=== PATIENT | male | born 1955 | race Hispanic/Latino ===

== ENCOUNTER 2018-10-15 21:05 | Observation (INO) | payer OTHER ==
[2018-10-15 21:34] LABS: BASO # 0.1 K/uL (0.0-0.2); EOS # 0.3 K/uL (0.0-0.7); EOS % 2.5 % (0.0-4.0); HEMOGLOBIN 12.4 g/dL (12.0-18.0); LYMPH # 3.2 K/uL (1.0-4.3); LYMPH % 31.1 % (20.0-40.0); MEAN CELL VOLUME 85.8 fl (80.0-94.0); MEAN CORPUSCULAR HEMOGLOBIN 28.8 pg (27.0-31.0); MEAN CORPUSCULAR HGB CONC 33.6 g/dL (33.0-37.0); MEAN PLATELET VOLUME 9.1 fl (7.2-11.7); MONO # 0.6 K/uL (0.0-0.8); MONO % 5.7 % (0.0-10.0); NEUT # 6.1 K/uL (1.8-7.0); NEUT % 59.7 % (50.0-75.0); NRBC % 0.1 % (0.0-0.0); RBC 4.32 Mil/uL (4.40-5.90); RED CELL DISTRIBUTION WIDTH 14.3 % (11.5-14.5); WHITE BLOOD COUNT 10.2 K/uL (4.8-10.8)
[2018-10-15 21:39] LABS: PROTHROMBIN TIME 11.9 Seconds (9.8-13.1)
[2018-10-15] MEDS: Sodium Chloride 0.9% 1,000 ML IV SCH (21:40)
[2018-10-15 21:42] LABS: PARTIAL THROMBOPLASTIN TIME 27.3 Seconds (25.6-37.1)
[2018-10-15 21:45] LABS: ALB/GLOB RATIO 1.3 (1.0-2.1); ALBUMIN 4.3 g/dL (3.5-5.0); ALT/SGPT 26 U/L (21-72); AST/SGOT 28 U/L (17-59); BLOOD UREA NITROGEN 12 mg/dl (9-20); CALCIUM 8.8 mg/dL (8.4-10.2); GFR NON-AFRICAN AMERICAN > 60; HDL CHOLESTEROL 31 MG/DL (30-70)
[2018-10-15 21:55] LABS: LDL CHOLESTEROL 126 mg/dL (0-129)
[2018-10-15] MEDS ORDERED: levETIRAcetam 1,000 MG in Sodium Chloride 0.9% 100 ML IVPB ONE (22:12)
--- NOTE | 2018-10-15 22:19 | ED PDOC ---
HPI: Seizure Time Seen by Provider: 10/15/18 21:09 Chief Complaint (Nursing): Weakness/Neurological Deficit Chief Complaint (Provider): seizure History Per: Patient, EMS, Other ([place] police department) History/Exam Limitations: no limitations Recent Seizure Activity Began: Just Before Arrival Number Of Seizures: One Length Of Seizures (Duration): Unknown Post-ictal Period: Yes Severity: Moderate Additional Complaint(s): 63 year old male with a past medical history of seizures and hypertension is brought into the ED by [place] police department for an evaluation of a seizure. [place] police was called when patient was crossing the street in [place], collapsed, and started seizing according to witnesses. Unable to recall how long the seizure lasted. Patient arrived to ED in post-ictal state. As per EMS, patient reported having a history of seizures and currently taking keppra. Lani ent reports being compliant with keppra and denies taking drugs or alcohol. PMD: Aditya Silverio MD Past Medical History Reviewed: Historical Data, Nursing Documentation, Vital Signs Vital Signs: Last Vital Signs Temp 98.9 F 10/15/18 21:06 Pulse 75 10/15/18 21:35 Resp 18 10/15/18 21:35 BP 111/64 10/15/18 21:35 Pulse Ox 97 10/15/18 21:35 VANDANA Report Viewed: Yes - Medical History PMH: Seizures - Family History Family History: States: No Known Family Hx - Social History Current smoker - smoking cessation education provided: No Alcohol: None - Home Medications Home Medications: Ambulatory Orders Medication Instructions Recorded Atorvastatin [Lipitor] 20 mg PO DAILY #30 tab 10/16/18 amLODIPine [Norvasc] 5 mg PO DAILY #30 tab 10/16/18 levETIRAcetam [Keppra] 500 mg PO BID #60 tab 10/16/18 - Allergies Allergies/Adverse Reactions: Allergies Allergy/AdvReac Type Severity Reaction Status Date / Time Unobtainable Allergy Verified 10/15/18 21:05 Review of Systems ROS Statement: Except As Marked, All Systems Reviewed And Found Negative Neurological: Positive for: Weakness, Seizures Physical Exam - Reviewed Nursing Documentation Reviewed: Yes Vital Signs Reviewed: Yes - Physical Exam Appears: Positive for: No Acute Distress Head Exam: Positive for: ATRAUMATIC, NORMOCEPHALIC Skin: Positive for: Warm, Dry Eye Exam: Positive for: EOMI, PERRL (PERRLA) ENT: Positive for: Other (superficial abrasion to tip of the tongue, (-) active bleeding, (-) laceration) Neck: Positive for: Painless ROM, Supple Cardiovascular/Chest: Positive for: Regular Rate, Rhythm. Negative for: Murmur Respiratory: Positive for: Normal Breath Sounds. Negative for: Respiratory Distress Gastrointestinal/Abdominal: Positive for: Soft. Negative for: Tenderness Back: Positive for: Normal Inspection. Negative for: Decreased ROM Extremity: Positive for: Normal ROM. Negative for: Deformity Lymphatic: Negative for: Adenopathy Neurological/Psych: Positive for: Awake, Alert, Oriented (3x), Lethargic (somewhat), Facial Droop (left sided), Other (right side gaze preferred). Negative for: Symmetric/Intact Strength (left arm and left leg weakness) - Laboratory Results Result Diagrams: 10/15/18 21:20 10/15/18 21:20 Lab Results: PT 11.9 Seconds (9.8-13.1) 10/15/18 21:20 INR 1.0 10/15/18 21:20 APTT 27.3 Seconds (25.6-37.1) 10/15/18 21:20 Troponin I < 0.0120 ng/mL (0.00-0.120) 10/15/18 21:20 Total Bilirubin 0.5 mg/dl (0.2-1.3) 10/15/18 21:20 AST 28 U/L (17-59) 10/15/18 21:20 ALT 26 U/L (21-72) 10/15/18 21:20 Alkaline Phosphatase 45 U/L (38-126) 10/15/18 21:20 Total Protein 7.5 G/DL (6.3-8.2) 10/15/18 21:20 Albumin 4.3 g/dL (3.5-5.0) 10/15/18 21:20 Globulin 3.3 gm/dL (2.2-3.9) 10/15/18 21:20 Albumin/Globulin Ratio 1.3 (1.0-2.1) 10/15/18 21:20 - ECG O2 Sat by Pulse Oximetry: 97 (RA) Pulse Ox Interpretation: Normal - Core Measure Core Measure Indicators: Code Stroke - Critical Care Total Time (In Min): 30 Documented Critical Care: Time excludes all time spent performint seperately billable procedures Medical Decision Making Medical Decision Makin:09 Initial impression: 63 year old male with a seizure and left sided weakness. Differential diagnoses include but are not limited to TIA and Abdi's paralysis. Code stroke called Initial plan: * CT head w/o contrast * XRay chest * EKG * type and screen * alcohol serum * CMP * hemoglobin * lipid panel * troponin * CBC with differential * PT/ PTT * keppra level * glucose, poc * IV NS 1,000 ml IV 100 mls/hr * reevaluation 21:34 CT head read and reviewed by radiologist Findings: The ventricles and sulci are symmetric bilaterally. There is no evidence of acute hemorrhage or infarct. There is no midline shift, mass effect, or extra-axial fluid collection. The osseous structures are unremarkable. The maxillary sinuses demonstrate mucus retention cyst bilaterally. The other visualized paranasal sinuses and mastoid air cells are clear. Impression: Negative study. 21:45 Upon reevaluation, patient has increased strength in upper and lower extremities. Decrease in left sided facial droop, smile improved. Improvement in right gaze preference. 22:10 Upon reevaluation, patient has no left sided neglect. EOMI in both eyes. Strength is 5/5 in all extremities. 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 Recommends observation and load patient with keppra 1,000 mg. Also advised to continue keppra 500 mg BID. 22:20 Discussed case with (hospitalist) for hospitalization. Scribe Attestation: Documented by Danika Reina, acting as a scribe for Valerie Chiu MD. Provider Scribe Attestation: All medical record entries made by the Scribe were at my direction and personally dictated by me. I have reviewed the chart and agree that the record accurately reflects my personal performance of the history, physical exam, m edical decision making, and the department course for this patient. I have also personally directed, reviewed, and agree with the discharge instructions and disposition. Disposition - Clinical Impression Clinical Impression: Breakthrough seizure, Weakness of one side of body - Disposition Disposition Time: 22:00 Condition: FAIR - Pt Status Changed To: Hospital Disposition Of: Observation - POA Present On Arrival: Falls Or Trauma
--- NOTE | 2018-10-15 23:04 | CP.PCM.HP ---
<Jeri Brown - Last Filed: 10/15/18 23:40> History of Present Illness - History of Present Illness History of Present Illness: This is 63 y/o M with PMH of Seizure disorder and HTN admitted to [facility] for evaluation and treatment of break through seizures followed by left body paralysis. As per patient he was normal to his baseline health and going back to home from work, while waiting for bus he had seizure/collapsed, and started seizing according to witnesses. Patient doesnt remember what happened after that and woke up in the ER. Unable to recall how long the seizure lasted. Patient arr ived to ED in post-ictal state. Patient reports his last seizure was > 1 year ago. Patient had temporarily left sided paralysis/neglect in the ER which improved after few mins. Patient is taking Keppra 250mg AM and 500mg PM with Amlodipine 5mg daily PMH: Dr. Karel Silverio PMH: Seizure disorder and HTN PSH: Denies Allg; NKDA Meds: Keppra 250mg AM and 500mg PM with Amlodipine 5mg daily SH: Denies alcohol/Smoking or drug use FH: Denies any FH of heart disease/Stroke or Seizures ER Course: VS: HR 93, 120/73, Spo2 97, Afebrile CBC: WNL CMP: WNL CT head: No acute findings Code Stroke was called COnsult Neuro (C/w keppra 500 BID, no ASA/STATIN or MRI) Present on Admission - Present on Admission Any Indicators Present on Admission: No Review of Systems - Constitutional Constitutional: absent: Headache - EENT Eyes: absent: Blurred Vision Ears: absent: Ear Discharge, Disequilibrium, Dizziness Nose/Mouth/Throat: absent: Nasal Congestion - Cardiovascular Cardiovascular: absent: Chest Pain - Respiratory Respiratory: absent: Cough, Dyspnea, Hemoptysis - Gastrointestinal Gastrointestinal: absent: Abdominal Pain, Diarrhea - Genitourinary Genitourinary: absent: Dysuria - Musculoskeletal Musculoskeletal: absent: Back Pain - Integumentary Integumentary: absent: Bleeding Lesions - Neurological Neurological: absent: Abnormal Gait, Abnormal Movements, Dizziness, Sensory Deficit, Tingling, Tremor, Vertigo, Weakness - Psychiatric Psychiatric: absent: Anxiety, Visual Hallucinations - Hematologic/Lymphatic Hematologic: absent: Easy Bleeding Past Patient History - Past Social History Alcohol: None - NEUROLOGICAL Hx Seizures: Yes - PSYCHIATRIC Hx Substance Use: No Meds Allergies/Adverse Reactions: Allergies Allergy/AdvReac Type Severity Reaction Status Date / Time Unobtainable Allergy Verified 10/15/18 21:05 Physical Exam - Constitutional Appears: No Acute Distress - Head Exam Head Exam: ATRAUMATIC, NORMAL INSPECTION, NORMOCEPHALIC - Eye Exam Eye Exam: EOMI, Normal appearance, PERRL Pupil Exam: NORMAL ACCOMODATION - ENT Exam ENT Exam: Mucous Membranes Moist - Neck Exam Neck exam: Positive for: Normal Inspection - Respiratory Exam Respiratory Exam: Clear to Auscultation Bilateral, NORMAL BREATHING PATTERN. absent: Accessory Muscle Use, Chest Wall Tenderness, Prolonged Expiratory Phase, Wheezes, Respiratory Distress - Cardiovascular Exam Cardiovascular Exam: REGULAR RHYTHM, +S1, +S2. absent: Bradycardia, Tachycardia - GI/Abdominal Exam GI & Abdominal Exam: Normal Bowel Sounds, Soft. absent: Tenderness - Extremities Exam Extremities exam: Negative for: pedal edema, tenderness Additional comments: Left forearm smal 1cm abrasion - Back Exam Back exam: NORMAL INSPECTION. absent: CVA tenderness (L), CVA tenderness (R) - Neurological Exam Neurological exam: Alert, CN II-XII Intact, Normal Gait, Oriented x3 - Expanded Neurological Exam Expanded Patient oriented to: person, place, time Ataxia: No Cerebellar Function: Finger to Nose: Normal, Heel to Huber: Normal Upper motor neuron: Pronator Drift: Normal Neuro motor strength exam: Left Upper Extremity: 5, Right Upper Extremity: 5, Left Lower Extremity: 5, Right Lower Extremity: 5 - Psychiatric Exam Psychiatric exam: Normal Affect - Skin Skin Exam: Dry, Intact, Normal Color, Warm Results - Vital Signs Recent Vital Signs: Last Vital Signs Temp 98.9 F 10/15/18 21:06 Pulse 78 10/15/18 22:27 Resp 13 10/15/18 22:27 BP 151/89 H 10/15/18 22:27 Pulse Ox 97 10/15/18 22:29 - Labs Result Diagrams: 10/15/18 21:20 10/15/18 21:20 Labs: Laboratory Results - last 24 hr 10/15/18 10/15/18 10/15/18 21:15 21:20 21:20 WBC 10.2 RBC 4.32 L Hgb 12.4 Hct 37.0 MCV 85.8 MCH 28.8 MCHC 33.6 RDW 14.3 Plt Count 281 MPV 9.1 Neut % (Auto) 59.7 Lymph % (Auto) 31.1 Dor[place] % (Auto) 5.7 Eos % (Auto) 2.5 Baso % (Auto) 1.0 Neut # (Auto) 6.1 Lymph # (Auto) 3.2 [place] # (Auto) 0.6 Eos # (Auto) 0.3 Baso # (Auto) 0.1 PT INR APTT Sodium 137 Potassium 3.8 Chloride 103 Carbon Dioxide 18 L Anion Gap 20 BUN 12 Creatinine 0.8 Est GFR ( Amer) > 60 Est GFR (Non-Af Amer) > 60 POC Glucose (mg/dL) 186 H Random Glucose 177 H Calcium 8.8 Total Bilirubin 0.5 AST 28 ALT 26 Alkaline Phosphatase 45 Troponin I < 0.0120 Total Protein 7.5 Albumin 4.3 Globulin 3.3 Albumin/Globulin Ratio 1.3 Triglycerides 147 Cholesterol 182 LDL Cholesterol Direct 126 HDL Cholesterol 31 Alcohol, Quantitative < 10 Blood Type Antibody Screen BBK History Checked 10/15/18 10/15/18 21:20 21:20 WBC RBC Hgb Hct MCV MCH MCHC RDW Plt Count MPV Neut % (Auto) Lymph % (Auto) Dor[place] % (Auto) Eos % (Auto) Baso % (Auto) Neut # (Auto) Lymph # (Auto) [place] # (Auto) Eos # (Auto) Baso # (Auto) PT 11.9 INR 1.0 APTT 27.3 Sodium Potassium Chloride Carbon Dioxide Anion Gap BUN Creatinine Est GFR ( Amer) Est GFR (Non-Af Amer) POC Glucose (mg/dL) Random Glucose Calcium Total Bilirubin AST ALT Alkaline Phosphatase Troponin I Total Protein Albumin Globulin Albumin/Globulin Ratio Triglycerides Cholesterol LDL Cholesterol Direct HDL Cholesterol Alcohol, Quantitative Blood Type A POSITIVE Antibody Screen Negative BBK History Checked No verified bt Assessment & Plan - Assessment and Plan (Free Text) Assessment: A/P: This is 63 y/o M with PMH of Seizure disorder and HTN admitted to [facility] for evaluation and treatment of break through seizures followed by temporary left body paralysis. Break through seizures followed by temporary left body paralysis - S/p Cod Stroke, Normal CT - Consult Neuro: C/w keppra 500 BID, no ASA/STATIN, No MRI - Resolved Symptoms currently - STAT Keppra - C/w Keppra 500mg BID - F/u Keppra level - PT/OT in morning - F/u HBA1C and Lipids HTN - Chronic, COntrolled - C/w home medication: Norvasc 5mg daily ASCVD risk >7.5 - START Lipitor 20mg daily DVT PPX - Lovenox 40mg SC daily <TristenEsteban Ramírez - Last Filed: 10/16/18 02:15> Results - Vital Signs Recent Vital Signs: Last Vital Signs Temp 98.9 F 10/16/18 01:29 Pulse 82 10/16/18 01:29 Resp 18 10/16/18 01:29 BP 133/67 10/16/18 01:29 Pulse Ox 96 10/16/18 01:29 - Labs Result Diagrams: 10/15/18 21:20 10/15/18 21:20 Labs: Laboratory Results - last 24 hr 10/15/18 10/15/18 10/15/18 21:15 21:20 21:20 WBC 10.2 RBC 4.32 L Hgb 12.4 Hct 37.0 MCV 85.8 MCH 28.8 MCHC 33.6 RDW 14.3 Plt Count 281 MPV 9.1 Neut % (Auto) 59.7 Lymph % (Auto) 31.1 [place] % (Auto) 5.7 Eos % (Auto) 2.5 Baso % (Auto) 1.0 Neut # (Auto) 6.1 Lymph # (Auto) 3.2 [place] # (Auto) 0.6 Eos # (Auto) 0.3 Baso # (Auto) 0.1 PT INR APTT Sodium 137 Potassium 3.8 Chloride 103 Carbon Dioxide 18 L Anion Gap 20 BUN 12 Creatinine 0.8 Est GFR ( Amer) > 60 Est GFR (Non-Af Amer) > 60 POC Glucose (mg/dL) 186 H Random Glucose 177 H Calcium 8.8 Total Bilirubin 0.5 AST 28 ALT 26 Alkaline Phosphatase 45 Total Creatine Kinase 177 H Troponin I < 0.0120 Total Protein 7.5 Albumin 4.3 Globulin 3.3 Albumin/Globulin Ratio 1.3 Triglycerides 147 Cholesterol 182 LDL Cholesterol Direct 126 HDL Cholesterol 31 Alcohol, Quantitative < 10 Blood Type Antibody Screen BBK History Checked 10/15/18 10/15/18 21:20 21:20 WBC RBC Hgb Hct MCV MCH MCHC RDW Plt Count MPV Neut % (Auto) Lymph % (Auto) [place] % (Auto) Eos % (Auto) Baso % (Auto) Neut # (Auto) Lymph # (Auto) [place] # (Auto) Eos # (Auto) Baso # (Auto) PT 11.9 INR 1.0 APTT 27.3 Sodium Potassium Chloride Carbon Dioxide Anion Gap BUN Creatinine Est GFR ( Amer) Est GFR (Non-Af Amer) POC Glucose (mg/dL) Random Glucose Calcium Total Bilirubin AST ALT Alkaline Phosphatase Total Creatine Kinase Troponin I Total Protein Albumin Globulin Albumin/Globulin Ratio Triglycerides Cholesterol LDL Cholesterol Direct HDL Cholesterol Alcohol, Quantitative Blood Type A POSITIVE Antibody Screen Negative BBK History Checked No verified bt Attending/Attestation - Attestation I have personally seen and examined this patient.: Yes I have fully participated in the care of the patient.: Yes I have reviewed all pertinent clinical information: Yes Notes (Text): 10/16/18 02:09 I saw, examined and discussed this patient with Dr brown. i agree with the as sessment and plan outlined. this is a years old male with hx of Seizure on Keppra 250mg AM and 500mgPM. He was brought to the ED after a witnessed seizure with post ictal transient left sided weakness. In the ED this weakness improved to the patient normal state.Code stroke was called in the ED. nephrology was consulted. He was loaded with Keppra and will receive Keppra BID at 500mg MID. Observe in hospital with Neuro checks. Esteban Ramon MD
[2018-10-16 08:19] VITALS: RESP 20
[2018-10-16] MEDS: Sodium Chloride 0.9% 1,000 ML IV SCH (08:41)
[2018-10-16] MEDS ORDERED: Enoxaparin 40 mg Syringe SC SCH (09:00)
--- NOTE | 2018-10-16 11:27 | RAD ---
Date of service: 10/15/2018 HISTORY: Code Stroke COMPARISON: No prior. TECHNIQUE: 1 view obtained. FINDINGS: LUNGS: Nonspecific increased reticular markings are suggested at the bilateral inferior lung zones and are of indeterminate age. No definite alveolar infiltrates bilaterally. PLEURA: No significant pleural effusion identified, no pneumothorax apparent. CARDIOVASCULAR: No aortic atherosclerotic calcification present. Prominent cardiac silhouette. No pulmonary vascular congestion. OSSEOUS STRUCTURES: No significant abnormalities. VISUALIZED UPPER ABDOMEN: Normal. OTHER FINDINGS: None. IMPRESSION: Reticular markings at the inferior lung zones are identified increased and are of indeterminate age. Consider potential acute versus chronic interstitial pulmonary disease. No definite acute alveolitis bilaterally. No pleural effusion, pneumothorax or pulmonary vascular congestion.
[2018-10-16 12:42] VITALS: BP 145/73; PULSE 93; TEMP 98.2
--- NOTE | 2018-10-16 13:07 | CT ---
Date of service: 10/15/2018 PROCEDURE: CT HEAD WITHOUT CONTRAST. HISTORY: LEFT SIDED WEWAKNESS COMPARISON: None available. TECHNIQUE: Axial computed tomography images were obtained through the head/brain without intravenous contrast. Radiation dose: Total exam DLP = 918.66 mGy-cm. This CT exam was performed using one or more of the following dose reduction techniques: Automated exposure control, adjustment of the mA and/or kV according to patient size, and/or use of iterative reconstruction technique. FINDINGS: HEMORRHAGE: No intracranial hemorrhage. BRAIN: Normal kwon-white matter differentiation and density are appreciated throughout the cerebrum and cerebellum with the brainstem appearing unremarkable as well. There is no mass effect. There is no suspicious extra-axial fluid collection and the midline brain anatomy appears diffusely unremarkable. VENTRICLES: Unremarkable. No hydrocephalus. CALVARIUM: Unremarkable. PARANASAL SINUSES: Small bilateral maxillary sinus cysts or polyps. MASTOID AIR CELLS: Unremarkable as visualized. No inflammatory changes. OTHER FINDINGS: None. IMPRESSION: Unremarkable unenhanced head CT. No definite acute intracranial findings. Follow-up CT or MRI are available given clinical pattern suspicious for brain infarction. Concordant preliminary report from [facility], 10/15/2018, 9:34 p.m..
--- NOTE | 2018-10-16 13:37 | MRI ---
Date of service: 10/16/2018 PROCEDURE: MRI BRAIN WITHOUT CONTRAST HISTORY: r/o CVA COMPARISON: Noncontrast head CT 10/15/2018. TECHNIQUE: Multiplanar, multisequence MR images of the brain were obtained without intravenous contrast enhancement. FINDINGS: HEMORRHAGE: None DWI: No evidence of an acute or early subacute infarction. BRAIN PARENCHYMA: Good corticomedullary differentiation is seen. Proportional, diffuse expansion of the ventriculosulcal and cisternal spaces is appreciated with white matter lucency compatible with diffuse cerebral atrophy and chronic microangiopathy. No suspicious extra-axial fluid collection is identified and the midline brain anatomy appears grossly nonfocal as imaged. There is no mass effect throughout. Note is made of a prominent but empty sella suggestive of probable arachnoid cyst 1.1 cm greatest dimension. No associated restricted diffusion here. VENTRICLES: Unremarkable. No hydrocephalus. CRANIUM: Unremarkable. ORBITS: Grossly unremarkable. PARANASAL SINUSES/MASTOIDS: Bilateral cysts or polyps in the maxillary sinuses. VASCULAR SYSTEM: Skull base flow voids intact. OTHER FINDINGS: None. IMPRESSION: No evidence of acute or subacute brain infarction. Mild age related neuro degenerative changes are identified which are age-appropriate. Prominent, empty sella likely reflecting arachnoid cyst.
--- NOTE | 2018-10-16 14:02 | CP.PCM.DIS ---
Provider - Provider Date of Admission: 10/15/18 22:15 Attending physician: Esteban Ramon Consults: 10/15/18 21:13 Stroke Team Consult Stat Comment: Consulting Provider: Neurohospitalist Consulting Physician: NEUROHOSP Neurohospitalist for Consult: Prashanth Calzada Neurohospitalist for Consult: Yesenia Blankenship Reason for Consult: LEFT SIDED WEEKNSS SEZIURE Time Spent in preparation of Discharge (in minutes): 30 Diagnosis - Discharge Diagnosis (1) Breakthrough seizure Status: Acute Comment: CT and MRI negative for new acute findings. Patient discharged with Keppra 500mg BID. Will follow up with Dr. Grier outpatient. (2) Abdi's paralysis Status: Acute Comment: Secondary to breakthough seizure. Now resolved. Will follow up with Dr. Grier outpatient. Hospital Course - Lab Results Lab Results: Most Recent Lab Values WBC 10.2 K/uL (4.8-10.8) 10/15/18 21:20 RBC 4.32 Mil/uL (4.40-5.90) L 10/15/18 21:20 Hgb 12.4 g/dL (12.0-18.0) 10/15/18 21:20 Hct 37.0 % (35.0-51.0) 10/15/18 21:20 MCV 85.8 fl (80.0-94.0) 10/15/18 21:20 MCH 28.8 pg (27.0-31.0) 10/15/18 21:20 MCHC 33.6 g/dL (33.0-37.0) 10/15/18 21:20 RDW 14.3 % (11.5-14.5) 10/15/18 21:20 Plt Count 281 K/uL (130-400) 10/15/18 21:20 MPV 9.1 fl (7.2-11.7) 10/15/18 21:20 Neut % (Auto) 59.7 % (50.0-75.0) 10/15/18 21:20 Lymph % (Auto) 31.1 % (20.0-40.0) 10/15/18 21:20 [place] % (Auto) 5.7 % (0.0-10.0) 10/15/18 21:20 Eos % (Auto) 2.5 % (0.0-4.0) 10/15/18 21:20 Baso % (Auto) 1.0 % (0.0-2.0) 10/15/18 21:20 Neut # (Auto) 6.1 K/uL (1.8-7.0) 10/15/18 21:20 Lymph # (Auto) 3.2 K/uL (1.0-4.3) 10/15/18 21:20 [place] # (Auto) 0.6 K/uL (0.0-0.8) 10/15/18 21:20 Eos # (Auto) 0.3 K/uL (0.0-0.7) 10/15/18 21:20 Baso # (Auto) 0.1 K/uL (0.0-0.2) 10/15/18 21:20 PT 11.9 Seconds (9.8-13.1) 10/15/18 21:20 INR 1.0 10/15/18 21:20 APTT 27.3 Seconds (25.6-37.1) 10/15/18 21:20 Sodium 137 mmol/l (132-148) 10/15/18 21:20 Potassium 3.8 MMOL/L (3.6-5.0) 10/15/18 21:20 Chloride 103 mmol/L (98-107) 10/15/18 21:20 Carbon Dioxide 18 mmol/L (22-30) L 10/15/18 21:20 Anion Gap 20 (10-20) 10/15/18 21:20 BUN 12 mg/dl (9-20) 10/15/18 21:20 Creatinine 0.8 mg/dl (0.8-1.5) 10/15/18 21:20 Est GFR ( Amer) > 60 10/15/18 21:20 Est GFR (Non-Af Amer) > 60 10/15/18 21:20 POC Glucose (mg/dL) 186 mg/dL (65-110) H 10/15/18 21:15 Random Glucose 177 mg/dL (75-110) H 10/15/18 21:20 Hemoglobin A1c 6.4 % (4.2-6.5) 10/15/18 21:20 Calcium 8.8 mg/dL (8.4-10.2) 10/15/18 21:20 Total Bilirubin 0.5 mg/dl (0.2-1.3) 10/15/18 21:20 AST 28 U/L (17-59) 10/15/18 21:20 ALT 26 U/L (21-72) 10/15/18 21:20 Alkaline Phosphatase 45 U/L (38-126) 10/15/18 21:20 Total Creatine Kinase 177 U/L (55-170) H 10/15/18 21:20 Troponin I < 0.0120 ng/mL (0.00-0.120) 10/15/18 21:20 Total Protein 7.5 G/DL (6.3-8.2) 10/15/18 21: Albumin 4.3 g/dL (3.5-5.0) 10/15/18 21: Globulin 3.3 gm/dL (2.2-3.9) 10/15/18 21: Albumin/Globulin Ratio 1.3 (1.0-2.1) 10/15/18 21:20 Triglycerides 147 mg/DL (0-149) 10/15/18 21:20 Cholesterol 182 mg/dL (0-199) 10/15/18 21:20 LDL Cholesterol Direct 126 mg/dL (0-129) 10/15/18 21:20 HDL Cholesterol 31 MG/DL (30-70) 10/15/18 21:20 Alcohol, Quantitative < 10 mg/dl (0-10) 10/15/18 21:20 Blood Type A POSITIVE 10/15/18:20 Antibody Screen Negative 10/15/18: BBK History Checked No verified bt 10/15/18 21:20 - Hospital Course Hospital Course: 63 y/o M with PMH of Seizure disorder and HTN admitted to [facility] for evaluation and treatment of break through seizures followed by abdi's paralysis. Patient was admitted for observation to telemetry. No acute events or events on the cafeteria monitor noted. CT of the head and MRI did not demonstrate any acute changes and did not demonstrate stroke. Patient's Keppra dose was increased from 250mg am and 500mg pm to 500mg po BID. Patient's paralysis resolved during his stay and was fully functionally and participated fully in PT. Patient to be discharged with new Keppra prescription and Lipitor 20mg daily. Patient to follow up outpatient with Dr. Grier and his PMD. Discharge Exam - Head Exam Head Exam: ATRAUMATIC, NORMAL INSPECTION, NORMOCEPHALIC - Eye Exam Eye Exam: Normal appearance - ENT Exam ENT Exam: Mucous Membranes Moist - Respiratory Exam Respiratory Exam: Clear to PA & Lateral, NORMAL BREATHING PATTERN, UNREMARKABLE. absent: Accessory Muscle Use, Chest Wall Tenderness, Decreased Breath Sounds, Prolonged Expiratory Phase, Rales, Rhonchi, Wheezes, Respiratory Distress - Cardiovascular Exam Cardiovascular Exam: REGULAR RHYTHM, +S1, +S2 - GI/Abdominal Exam GI & Abdominal Exam: Normal Bowel Sounds, Soft, Unremarkable. absent: Diminished Bowel Sounds, Distended, Firm, Guarding, Rebound, Rigid, Tenderness - Extremities Exam Extremities exam: normal capillary refill, normal inspection, pedal pulses present - Neurological Exam Neurological exam: Alert, Oriented x3 Additional comments: Sensation intact bilaterally. Strength 5/5 in all extremities. Gait normal. - Psychiatric Exam Psychiatric exam: Normal Affect, Normal Mood - Skin Skin Exam: Dry, Intact, Normal Color, Warm Discharge Plan - Discharge Medications Prescriptions: amLODIPine [Norvasc] 5 mg PO DAILY #30 tab Atorvastatin [Lipitor] 20 mg PO DAILY #30 tab levETIRAcetam [Keppra] 500 mg PO BID #60 tab - Follow Up Plan Condition: GOOD Disposition: HOME/ ROUTINE Patient education suggested?: Yes Instructions: Epilepsy in Adults, Seizures, Adult (DC) Additional Instructions: Follow up with Dr. Grier outpatient. Follow up with PMD in 1 week.
--- NOTE | 2018-10-16 17:45 | CARD ---
APPROVED REPORT Date of service: 10/15/2018 EKG Measurement Heart [id number] <Conclusion> Normal sinus rhythm Left axis deviation Abnormal ECG
[2018-10-16 23:17] VITALS: O2SAT 97
== END 2018-10-16 15:25 | disposition home or self-care (01) ==
LOC: H.ER 21:05 → MERGE 22:15 → H.ERHOLD 22:15 → H.TEL 10-16 01:02
PROVIDERS: ADMIT Internal Medicine; ATTEND Internal Medicine
DX: G40.909 Epilepsy, unspecified, not intractable, without status epilepticus (principal); G83.84 Todd's paralysis (postepileptic); I10 Essential (primary) hypertension
CPT/HCPCS: 36415; 70450; 70551; 71045; 80053; 80061; 80177; 80320; 82550; 82948; 83036; 84484; 85025; 85610; 85730; 86850; 86900; 93005; 96365; 97116; 97161; 97530; 99283; G0378; G8978; G8979; G8980; J1650; J1953; J7030